=== PATIENT | female | born 2000 | race Hispanic/Latino ===

== ENCOUNTER 2022-06-18 19:51 | Emergency (ER) | payer MEDICAID, SELFPAY ==
[2022-06-18 20:27] LABS: Bilirubin Neg (Negative); Blood, Urine Negative (Negative); Clarity Clear (Clear); Glucose, Urine (Dipstick) Normal (Negative); Ketone, Urine Negative (Negative); Leukocyte 25 (Negative); Nitrite Negative (Negative); Protein, Urine (Dipstick) 15 mg/dl (Neg-Trace); Specific Gravity, Urine 1.025 (1.005-1.030); Urobilinogen Normal mg/dL (Less than 2)
[2022-06-18 20:30] LABS: Pregnancy Test - Urine (BHCG) POSITIVE (Negative); Pregu Control Background? CLEAR/WHITE (CLR/WHITE); Pregu Control Bar Appear? YES (CONTROL BAR); Specific Gravity 1.025 (1.002-1.036)
[2022-06-18 20:57] LABS: Bacteria/HPF 1+ HPF (None Seen); Mucous/LPF 2+ LPF (<2+); RBC/HPF 0-3 HPF (0-3); Squamous Epithelial 0-3 HPF (0-3); WBC/HPF 0-3 HPF (0-3)
[2022-06-18 21:03] LABS: #Basophils 0.1 10x3/uL (0.0-0.2); #Eosinphils 0.1 10x3/uL (0.0-0.5); #Monocytes 0.6 10x3/uL (0.0-1.1); #Neutrophils 4.7 10x3/uL (1.5-8.4); %Basophils 0.7 % (0.0-2.0); %Eosinophils 1.1 % (0.0-6.0); %Lymphocytes 26.8 % (18.0-47.0); %Monocytes 7.6 % (0.0-10.0); %Neutrophils 63.5 % (40.0-75.0); Hemoglobin 11.2 g/dL (12.0-15.5); Mean Corpuscular HGB CONC 32.4 g/dL (32.0-36.0); Mean Corpuscular Hemoglobin 27.1 pg (27.0-33.0); Mean Corpuscular Volume 83.8 fl (81.6-98.3); Mean Platelet Volume 10.3 fl (7.4-10.4); Platelet Count 270 10x3/uL (150-450); RBC Distribution Width 13.7 % (11.5-14.5); Red Blood Cell (RBC) Count 4.13 10x6/uL (3.90-5.03); White Blood Cell (WBC) Count 7.4 10x3/uL (3.5-10.5)
== END 2022-06-18 23:18 | disposition home or self-care (01) ==
LOC: CSHERS 19:51
DX: O99.891 Other specified diseases and conditions complicating pregnancy (principal); R10.2 Pelvic and perineal pain; Z3A.01 Less than 8 weeks gestation of pregnancy
CPT/HCPCS: 36415; 76856; 81003; 81015; 81025; 84702; 85025; 86900; 86901

== ENCOUNTER 2022-06-23 13:07 | Emergency (ER) | payer MEDICAID, SELFPAY ==
[2022-06-23] MEDS ORDERED: Acetaminophen 500 MG TAB ONE (18:16)
== END 2022-06-23 19:38 | disposition home or self-care (01) ==
LOC: CSHERS 13:07
DX: O99.891 Other specified diseases and conditions complicating pregnancy (principal); Z3A.01 Less than 8 weeks gestation of pregnancy
CPT/HCPCS: 76856; 84702; 93976

== ENCOUNTER 2023-01-10 21:20 | Day surgery (SDC) | payer MEDICAID ==
[2023-01-10] MEDS ORDERED: hydrALAZINE 20 MG/ML VIAL SLOW IVP PRN (22:34)
[2023-01-10 23:16] VITALS: BMI 21.9
[2023-01-10 23:36] LABS: Bilirubin Neg (Negative); Blood, Urine Negative (Negative); Clarity Clear (Clear); Glucose, Urine (Dipstick) Normal (Negative); Ketone, Urine Negative (Negative); Leukocyte Negative (Negative); Nitrite Negative (Negative); Protein, Urine (Dipstick) Negative (Neg-Trace); Urobilinogen Normal mg/dL (Less than 2)
[2023-01-10 23:50] LABS: Bacteria/HPF Rare-Few HPF (None Seen); CAUTI Indications for Culture Pregnancy; Mucous/LPF Rare LPF (<2+); RBC/HPF None Seen HPF (0-3); Squamous Epithelial 0-3 HPF (0-3); WBC/HPF 0-3 HPF (0-3)
[2023-01-10 23:52] LABS: Urine Culture Reflex Yes Yes
== END 2023-01-10 23:59 | disposition home or self-care (01) ==
LOC: CSHLD/OP 21:20
PROVIDERS: ATTEND Family Medicine
DX: O23.593 Infection of other part of genital tract in pregnancy, third trimester (principal); N89.8 Other specified noninflammatory disorders of vagina; O99.891 Other specified diseases and conditions complicating pregnancy; R10.30 Lower abdominal pain, unspecified; O99.343 Other mental disorders complicating pregnancy, third trimester; T14.91XA Suicide attempt, initial encounter; Z3A.31 31 weeks gestation of pregnancy; Z79.899 Other long term (current) drug therapy
CPT/HCPCS: 76815; 81001; 87086

== ENCOUNTER 2023-01-31 02:18 | Day surgery (SDC) | payer OTHER, MEDICAID ==
[2023-01-31 02:57] VITALS: BMI 22.3
[2023-01-31] MEDS ORDERED: Promethazine HCl 25 MG/ML VIAL IM PRN (03:15)
[2023-01-31] MEDS ORDERED: Acetaminophen 500 MG TAB PO SCH (03:15)
[2023-01-31 03:30] LABS: Bilirubin Neg (Negative); Blood, Urine Negative (Negative); Clarity Clear (Clear); Glucose, Urine (Dipstick) Normal (Negative); Ketone, Urine Negative (Negative); Leukocyte 100 (Negative); Nitrite Negative (Negative); Protein, Urine (Dipstick) 15 mg/dl (Neg-Trace); Urobilinogen Normal mg/dL (Less than 2); pH, Urine 6.5 (5.0-9.0)
[2023-01-31 03:41] LABS: CAUTI Indications for Culture Pregnancy; RBC/HPF 0-3 HPF (0-3)
[2023-01-31 03:42] LABS: Bacteria/HPF None Seen HPF (None Seen)
[2023-01-31 03:44] LABS: Urine Culture Reflex Yes Yes
[2023-01-31] MEDS ORDERED: Metoclopramide HCl 10 MG TAB PO SCH (04:00)
[2023-01-31] MEDS ORDERED: Cephalexin 500 MG CAP PO SCH (09:00)
== END 2023-01-31 04:45 | disposition home or self-care (01) ==
LOC: CSHLD/OP 02:18
PROVIDERS: ATTEND Family Medicine
DX: O99.891 Other specified diseases and conditions complicating pregnancy (principal); O21.2 Late vomiting of pregnancy; R35.0 Frequency of micturition; R19.7 Diarrhea, unspecified; F41.9 Anxiety disorder, unspecified; F43.10 Post-traumatic stress disorder, unspecified; Z79.899 Other long term (current) drug therapy; Z3A.34 34 weeks gestation of pregnancy
CPT/HCPCS: 81001; 87086

== ENCOUNTER 2023-02-11 22:49 | Inpatient (IN) | payer MEDICAID, OTHER ==
[2023-02-11 23:59] LABS: Fetal Membranes Rupture No Membranes Rupture (No Rupture)
[2023-02-12 01:26] VITALS: BMI 22.4
[2023-02-12] MEDS ORDERED: fentaNYL 50 mcg/mL 1 mL Vial SLOW IVP PRN (01:33)
[2023-02-12] MEDS ORDERED: hydrALAZINE 20 MG/ML VIAL SLOW IVP PRN ×2 (01:45→10:08)
[2023-02-12] MEDS ORDERED: Ibuprofen 800 MG TAB PO PRN (01:45)
[2023-02-12] MEDS ORDERED: Diphenoxylate HCl/Atropine Tablet PO PRN ×2 (01:45)
[2023-02-12] MEDS ORDERED: Ondansetron PF 4 MG/2 ML Vial IVP PRN ×2 (01:45→10:08)
[2023-02-12] MEDS ORDERED: Carboprost 250 MCG/ML AMP IM PRN (01:45)
[2023-02-12] MEDS ORDERED: Oxytocin 30 units/NS 500 ML 500 ML IVPB SCH (01:45)
[2023-02-12] MEDS ORDERED: Acetaminophen 500 MG TAB PO PRN ×2 (01:45→22:28)
[2023-02-12] MEDS ORDERED: Methylergonovine 0.2 MG/ML VIAL IM PRN (01:45)
[2023-02-12] MEDS ORDERED: Promethazine HCl 25 MG/ML VIAL IM PRN ×3 (01:45→10:08)
[2023-02-12] MEDS ORDERED: Misoprostol 200 MCG TAB RC PRN (01:45)
[2023-02-12] MEDS ORDERED: Lidocaine 1% (PF) 30 ML VIAL SC PRN (01:45)
[2023-02-12] MEDS ORDERED: Oxytocin 30 units/NS 500 ML 500 ML IV SCH (01:45)
[2023-02-12] MEDS ORDERED: HYDROcodone/Acetaminophen 5/325 mg Tablet PO PRN ×2 (01:45)
[2023-02-12] MEDS ORDERED: Lactated Ringer's 1,000 ML IV SCH ×2 (01:45)
[2023-02-12 01:53] LABS: Hematocrit 31.6 % (34.9-44.5); Hemoglobin 9.9 g/dL (12.0-15.5); Mean Corpuscular HGB CONC 31.3 g/dL (32.0-36.0); Mean Corpuscular Hemoglobin 25.7 pg (27.0-33.0); Mean Corpuscular Volume 82.1 fl (81.6-98.3); Mean Platelet Volume 10.3 fl (7.4-10.4); Platelet Count 344 10x3/uL (150-450); RBC Distribution Width 14.3 % (11.5-14.5); Red Blood Cell (RBC) Count 3.85 10x6/uL (3.90-5.03); White Blood Cell (WBC) Count 10.3 10x3/uL (3.5-10.5)
[2023-02-12] MEDS ORDERED: fentaNYL/Ropivacaine Epidural 100 ML ONE (01:54)
[2023-02-12 02:30] LABS: Hep B Surf Ag - L&D Non-Reactive S/CO (NonReactive); Syphilis Antibody Nonreactive (Nonreactive); Syphilis Antibody Index 0.06 S/CO (<1.00 Non-Reactive)
[2023-02-12] MEDS ORDERED: ePHEDrine Sulfate 50 MG/10 ML VIAL SLOW IVP PRN (02:35)
[2023-02-12] MEDS ORDERED: Naloxone HCl 0.4 mg/ml Vial IVP PRN ×2 (02:35)
[2023-02-12] MEDS ORDERED: Acetaminophen 325 MG TAB PO PRN (02:35)
[2023-02-12] MEDS ORDERED: Lactated Ringer's 500 ML IV PRN (02:35)
[2023-02-12] MEDS ORDERED: diphenhydrAMINE 50 MG/ML VIAL IVP PRN (02:35)
[2023-02-12] MEDS ORDERED: Moisturizing Cream (Eucerin) 113 GM JAR TOP PRN (02:35)
[2023-02-12] MEDS ORDERED: fentaNYL 2 mcg/Ropivacaine 0.2% Epidural 100 ML CADD EPIDURAL SCH (02:45)
[2023-02-12] MEDS ORDERED: Communication Order-Pharmacy FS SCH (02:45)
[2023-02-12] MEDS: Ondansetron PF 4 MG/2 ML Vial IVP PRN ×2 (03:03→21:54)
[2023-02-12] MEDS ORDERED: CEFAZOLIN 2 GM VIAL ONE (07:39)
[2023-02-12] MEDS ORDERED: Boostrix 0.5 ML (Tdap) VIAL (>/=7 yrs of age) IM ONE (10:08)
[2023-02-12] MEDS ORDERED: Milk Of Magnesia 30 ML UDCUP PO PRN (10:08)
[2023-02-12] MEDS ORDERED: Bisacodyl 10 MG SUPP PR PRN (10:08)
[2023-02-12] MEDS ORDERED: diphenhydrAMINE 25 MG CAP PO PRN (10:08)
[2023-02-12] MEDS ORDERED: Lanolin Ointment 7 GM TUBE TOP PRN (10:08)
[2023-02-12] MEDS ORDERED: Docusate 100 MG CAP PO SCH (10:15)
[2023-02-12] MEDS ORDERED: Prenatal Vitamin 1 TAB PO SCH (10:15)
[2023-02-12] MEDS: Ibuprofen 800 MG TAB PO SCH ×2 (13:22→21:54)
[2023-02-12] MEDS: HYDROcodone/Acetaminophen 5/325 mg Tablet PO PRN ×2 (16:03→20:01)
[2023-02-12] MEDS: Ferrous Sulfate 325 MG TAB PO SCH (16:03)
[2023-02-12] MEDS: Docusate 100 MG CAP PO SCH (20:01)
[2023-02-12] MEDS ORDERED: HYDROmorphone 0.5 MG/0.5 ML SYRINGE SLOW IVP SCH (21:45)
[2023-02-13] MEDS: Ibuprofen 800 MG TAB PO SCH ×2 (05:00→14:08)
[2023-02-13 07:53] VITALS: BP 115/56; TEMP 98.3
[2023-02-13] MEDS: Ferrous Sulfate 325 MG TAB PO SCH (08:15)
[2023-02-13] MEDS: Docusate 100 MG CAP PO SCH (08:18)
[2023-02-13] MEDS ORDERED: Prenatal Vitamin 1 TAB PO SCH (09:00)
[2023-02-13] MEDS: HYDROcodone/Acetaminophen 5/325 mg Tablet PO PRN (09:27)
== END 2023-02-13 16:18 | disposition home or self-care (01) | DRG 807 ==
LOC: CSHLD/OP 22:49 → CSHLD 02-12 00:57 → CSHPP 02-12 11:15
PROVIDERS: ADMIT Family Medicine; ATTEND Family Medicine
PROC: 10E0XZZ Delivery of Products of Conception, External Approach (ICD-10-PCS; principal; 2023-02-12)
PROC: 3E0334Z Introduction of Serum, Toxoid and Vaccine into Peripheral Vein, Percutaneous Approach (ICD-10-PCS; 2023-02-13)
DX: O99.344 Other mental disorders complicating childbirth (principal); Z37.0 Single live birth; Z3A.38 38 weeks gestation of pregnancy; F31.9 Bipolar disorder, unspecified; O26.893 Other specified pregnancy related conditions, third trimester; Z67.91 Unspecified blood type, Rh negative
CPT/HCPCS: 36415; 51702; 84112; 85027; 85461; 86780; 86850; 86870; 86900; 86901; 87340; 90384; 96372; 99285; J1170; J2405; J2590

== ENCOUNTER 2023-02-15 18:14 | Emergency (ER) | payer OTHER ==
[2023-02-15] MEDS ORDERED: Ketorolac Tromethamine 30 MG/ML VIAL ONE (19:26)
[2023-02-15] MEDS ORDERED: Promethazine HCl 12.5 MG in Sodium Chloride 0.9% 50 ML IVPB SCH (19:45)
[2023-02-15] MEDS ORDERED: [UNRECOGNIZED DRUG - OTHER] SLOW IVP SCH (20:45)
[2023-02-15] MEDS ORDERED: CAFFEINE SLOW IVP SCH (20:45)
== END 2023-02-16 01:25 | disposition home or self-care (01) ==
LOC: CSHERS 18:14
DX: O89.4 Spinal and epidural anesthesia-induced headache during the puerperium (principal)
CPT/HCPCS: 96361; 96365; 96375; J0706; J1885; J2550

== ENCOUNTER 2023-03-22 06:31 | Emergency (ER) | payer OTHER ==
[2023-03-22] MEDS ORDERED: Ondansetron PF 4 MG/2 ML Vial ONE ×2 (06:50→07:29)
[2023-03-22] MEDS ORDERED: Acetaminophen 500 MG TAB ONE (07:25)
[2023-03-22] MEDS ORDERED: Famotidine/PF 20 mg/2ml Vial ONE (07:25)
[2023-03-22 07:27] LABS: #Basophils 0.1 10x3/uL (0.0-0.2); #Monocytes 0.3 10x3/uL (0.0-1.1); #Neutrophils 5.6 10x3/uL (1.5-8.4); %Basophils 0.8 % (0.0-2.0); %Eosinophils 0.4 % (0.0-6.0); %Lymphocytes 19.6 % (18.0-47.0); %Monocytes 4.1 % (0.0-10.0); Hematocrit 36.7 % (34.9-44.5); Hemoglobin 11.6 g/dL (12.0-15.5); Mean Corpuscular HGB CONC 31.6 g/dL (32.0-36.0); Mean Corpuscular Hemoglobin 25.7 pg (27.0-33.0); Mean Corpuscular Volume 81.2 fl (81.6-98.3); Mean Platelet Volume 10.3 fl (7.4-10.4); Platelet Count 324 10x3/uL (150-450); RBC Distribution Width 17.5 % (11.5-14.5); Red Blood Cell (RBC) Count 4.52 10x6/uL (3.90-5.03); White Blood Cell (WBC) Count 7.4 10x3/uL (3.5-10.5)
[2023-03-22 07:39] LABS: Acetaminophen Less than 10 mcg/mL (10.0-30.0); Alcohol Less than 10.0 mg/dL (Less than 10); Salicylate Less than 8.0 mg/dL (15.0-30.0)
[2023-03-22 07:42] LABS: ALT (SGPT) 10 U/L (8-55); AST (SGOT) 13 U/L (5-34); Albumin 4.2 g/dL (3.5-5.0); Alkaline Phosphatase 71 U/L (40-110); Anion Gap 15 mmol/L (10-20); BUN (Urea Nitrogen) 7 mg/dL (7.0-18.7); Bilirubin, Total 0.4 mg/dL (0.2-1.2); Calc. Creatinine Clearance 0 mL/min (70-130); Calcium 8.9 mg/dL (7.8-10.44); Carbon Dioxide 22 mmol/L (22-29); Chloride 109 mmol/L (98-107); Estimated GFR 129; Globulin 2.9 g/dL (2.4-3.5); Glucose 100 mg/dL (70-105); Potassium 3.8 mmol/L (3.5-5.1); Protein, Total 7.1 g/dL (6.0-8.3); Sodium 142 mmol/L (136-145)
[2023-03-22 07:51] LABS: BHCG - Serum Negative (NEGATIVE); Pregs Control Background? CLEAR/WHITE (CLR/WHITE); Pregs Control Bar Appear? YES (CONTROL BAR)
[2023-03-22 09:28] LABS: Amphetamine Not Detected (NotDetected); Barbiturates Screen Not Detected (NotDetected); Benzodiazepine Screen Not Detected (NotDetected); Cocaine Metabolite Screen Not Detected (NotDetected); Methadone Not Detected (NotDetected); Methamphetamine Not Detected (NotDetected); Opiate Screen Not Detected (NotDetected); Oxycodone Screen Not Detected (NotDetected); Phencyclidine (PCP) Not Detected (NotDetected); THC/Cannabinoid Screen Not Detected (NotDetected); Tricyclic Screen Not Detected (NotDetected)
[2023-03-22 10:55] LABS: Pregnancy Test - Urine (BHCG) Negative (Negative); Pregu Control Background? CLEAR/WHITE (CLR/WHITE); Pregu Control Bar Appear? YES (CONTROL BAR); Specific Gravity 1.005 (1.002-1.036)
[2023-03-22] MEDS ORDERED: diphenhydrAMINE 25 MG CAP ONE (20:22)
== END 2023-03-22 21:04 ==
LOC: CSHERS 06:31 → EEVIPCON 06:31 → CSHERS 21:04
DX: T43.222A Poisoning by selective serotonin reuptake inhibitors, intentional self-harm, initial encounter (principal); R11.2 Nausea with vomiting, unspecified
CPT/HCPCS: 80053; 80306; 80307; 81025; 84703; 85025; 93005; 96361; 96374; 96375; J2405; S0028

== ENCOUNTER 2023-05-03 20:45 | Emergency (ER) | payer OTHER ==
[2023-05-03 21:07] LABS: Bilirubin Neg (Negative); Blood, Urine Negative (Negative); Clarity Slightly Cloudy (Clear); Glucose, Urine (Dipstick) Normal (Negative); Ketone, Urine Negative (Negative); Leukocyte 500 (Negative); Nitrite Negative (Negative); Protein, Urine (Dipstick) 15 mg/dl (Neg-Trace); Specific Gravity, Urine 1.015 (1.005-1.030); pH, Urine 6.5 (5.0-9.0)
[2023-05-03 21:09] LABS: Pregnancy Test - Urine (BHCG) POSITIVE (Negative); Pregu Control Background? CLEAR/WHITE (CLR/WHITE); Pregu Control Bar Appear? YES (CONTROL BAR); Specific Gravity 1.015 (1.002-1.036)
[2023-05-03 21:30] LABS: Bacteria/HPF 1+ HPF (None Seen); CAUTI Indications for Culture Pregnancy; RBC/HPF 0-3 HPF (0-3)
[2023-05-03 21:31] LABS: Mucous/LPF 1+ LPF (<2+); Urine Culture Reflex Yes Yes
[2023-05-03 22:14] LABS: #Basophils 0.1 10x3/uL (0.0-0.2); #Eosinphils 0.1 10x3/uL (0.0-0.5); #Monocytes 0.9 10x3/uL (0.0-1.1); #Neutrophils 5.3 10x3/uL (1.5-8.4); %Basophils 0.7 % (0.0-2.0); %Eosinophils 1.5 % (0.0-6.0); %Lymphocytes 29.3 % (18.0-47.0); %Monocytes 10.3 % (0.0-10.0); %Neutrophils 57.9 % (40.0-75.0); Hematocrit 30.4 % (34.9-44.5); Mean Corpuscular HGB CONC 32.9 g/dL (32.0-36.0); Mean Corpuscular Hemoglobin 27.1 pg (27.0-33.0); Mean Corpuscular Volume 82.4 fl (81.6-98.3); Mean Platelet Volume 10.5 fl (7.4-10.4); Platelet Count 331 10x3/uL (150-450); RBC Distribution Width 16.7 % (11.5-14.5); Red Blood Cell (RBC) Count 3.69 10x6/uL (3.90-5.03); White Blood Cell (WBC) Count 9.1 10x3/uL (3.5-10.5)
[2023-05-03 22:26] LABS: Anion Gap 12 mmol/L (10-20); BUN (Urea Nitrogen) 14 mg/dL (7.0-18.7); Calc. Creatinine Clearance 0 mL/min (70-130); Calcium 8.5 mg/dL (7.8-10.44); Carbon Dioxide 21 mmol/L (22-29); Chloride 109 mmol/L (98-107); Estimated GFR 129; Glucose 86 mg/dL (70-105); Potassium 3.7 mmol/L (3.5-5.1); Sodium 138 mmol/L (136-145)
[2023-05-05 16:07] LABS: Chlamydia by PCR, EndoCx Swab *Indeterminate (NotDetected); GC by PCR, EndoCx Swab *Indeterminate (NotDetected)
== END 2023-05-04 00:30 | disposition home or self-care (01) ==
LOC: CSHERS 20:45
DX: O23.591 Infection of other part of genital tract in pregnancy, first trimester (principal); O30.041 Twin pregnancy, dichorionic/diamniotic, first trimester; Z3A.01 Less than 8 weeks gestation of pregnancy
CPT/HCPCS: 76817; 80048; 81001; 81025; 84702; 85025; 87086; 87480; 87491; 87510; 87591; 87660

== ENCOUNTER 2023-05-17 19:52 | Emergency (ER) | payer OTHER ==
[2023-05-17 21:00] LABS: #Basophils 0.1 10x3/uL (0.0-0.2); #Eosinphils 0.1 10x3/uL (0.0-0.5); #Monocytes 0.5 10x3/uL (0.0-1.1); #Neutrophils 6.2 10x3/uL (1.5-8.4); %Basophils 0.6 % (0.0-2.0); %Lymphocytes 26.2 % (18.0-47.0); %Monocytes 5.3 % (0.0-10.0); %Neutrophils 66.6 % (40.0-75.0); Hematocrit 34.3 % (34.9-44.5); Hemoglobin 11.1 g/dL (12.0-15.5); Mean Corpuscular HGB CONC 32.4 g/dL (32.0-36.0); Mean Corpuscular Hemoglobin 26.1 pg (27.0-33.0); Mean Corpuscular Volume 80.5 fl (81.6-98.3); Mean Platelet Volume 10.1 fl (7.4-10.4); Platelet Count 348 10x3/uL (150-450); RBC Distribution Width 15.6 % (11.5-14.5); Red Blood Cell (RBC) Count 4.26 10x6/uL (3.90-5.03); White Blood Cell (WBC) Count 9.3 10x3/uL (3.5-10.5)
[2023-05-17] MEDS ORDERED: Promethazine HCl 12.5 MG in Sodium Chloride 0.9% 50 ML IVPB ONE (21:00)
[2023-05-17 21:04] LABS: ALT (SGPT) 14 U/L (8-55); AST (SGOT) 14 U/L (5-34); Albumin 4.1 g/dL (3.5-5.0); Alkaline Phosphatase 55 U/L (40-110); Anion Gap 13 mmol/L (10-20); BUN (Urea Nitrogen) 12 mg/dL (7.0-18.7); Bilirubin, Total 0.3 mg/dL (0.2-1.2); Calc. Creatinine Clearance 0 mL/min (70-130); Calcium 8.7 mg/dL (7.8-10.44); Carbon Dioxide 22 mmol/L (22-29); Chloride 106 mmol/L (98-107); Estimated GFR 126; Globulin 3.1 g/dL (2.4-3.5); Glucose 86 mg/dL (70-105); Lipase 32 U/L (8-78); Potassium 3.7 mmol/L (3.5-5.1); Protein, Total 7.2 g/dL (6.0-8.3); Sodium 137 mmol/L (136-145)
[2023-05-17 21:40] LABS: Bilirubin Neg (Negative); Blood, Urine Negative (Negative); Clarity Clear (Clear); Glucose, Urine (Dipstick) Normal (Negative); Ketone, Urine Negative (Negative); Leukocyte 100 (Negative); Nitrite Negative (Negative); Protein, Urine (Dipstick) Negative (Neg-Trace); Urobilinogen Normal mg/dL (Less than 2)
[2023-05-17 22:07] LABS: Bacteria/HPF 1+ HPF (None Seen); CAUTI Indications for Culture Pelvic or flank pain; Mucous/LPF 2+ LPF (<2+); RBC/HPF 0-3 HPF (0-3); Squamous Epithelial 0-3 HPF (0-3)
[2023-05-17 22:09] LABS: Urine Culture Reflex Yes Yes
== END 2023-05-17 23:15 | disposition home or self-care (01) ==
LOC: CSHERS 19:52
DX: O21.9 Vomiting of pregnancy, unspecified (principal); Z87.891 Personal history of nicotine dependence; Z3A.00 Weeks of gestation of pregnancy not specified
CPT/HCPCS: 80053; 81001; 83605; 83690; 84702; 85025; 87086; 96361; 96374

== ENCOUNTER 2023-08-12 21:37 | Emergency (ER) | payer OTHER ==
[2023-08-12] MEDS ORDERED: Acetaminophen 500 MG TAB ONE (22:02)
[2023-08-12 22:21] LABS: #Basophils 0.05 10x3/uL (0.0-0.2); #Eosinphils 0.37 10x3/uL (0.0-0.5); #Monocytes 0.68 10x3/uL (0.0-1.1); #Neutrophils 4.07 10x3/uL (1.5-8.4); %Basophils 0.7 % (0.0-2.0); %Eosinophils 5.4 % (0.0-6.0); %Lymphocytes 24.5 % (18.0-47.0); %Monocytes 9.9 % (0.0-10.0); %Neutrophils 59.2 % (40.0-75.0); Hematocrit 29.9 % (34.9-44.5); Hemoglobin 9.6 g/dL (12.0-15.5); Mean Corpuscular HGB CONC 32.1 g/dL (32.0-36.0); Mean Corpuscular Hemoglobin 26.2 pg (27.0-33.0); Mean Corpuscular Volume 81.7 fL (81.6-98.3); Mean Platelet Volume 10.3 fL (7.4-10.4); Platelet Count 302 10x3/uL (150-450); RBC Distribution Width 16.4 % (11.5-14.5); Red Blood Cell (RBC) Count 3.66 10x6/uL (3.90-5.03); White Blood Cell (WBC) Count 6.9 10x3/uL (3.5-10.5)
[2023-08-12 22:34] LABS: ALT (SGPT) 9 U/L (8-55); AST (SGOT) 14 U/L (5-34); Albumin 2.9 g/dL (3.5-5.0); Alkaline Phosphatase 73 U/L (40-110); Anion Gap 13 mmol/L (10-20); BUN (Urea Nitrogen) 9 mg/dL (7.0-18.7); Bilirubin, Total Less than 0.2 mg/dL (0.2-1.2); Calc. Creatinine Clearance 0 mL/min (70-130); Calcium 8.3 mg/dL (7.8-10.44); Carbon Dioxide 21 mmol/L (22-29); Chloride 105 mmol/L (98-107); Estimated GFR 133; Globulin 3.6 g/dL (2.4-3.5); Glucose 79 mg/dL (70-105); Lipase 37 U/L (8-78); Magnesium 1.9 mg/dL (1.6-2.6); Potassium 3.3 mmol/L (3.5-5.1); Protein, Total 6.5 g/dL (6.0-8.3); Sodium 136 mmol/L (136-145)
[2023-08-12] MEDS ORDERED: Potassium Bicarbonate/Cit Ac 20 MEQ TAB ONE (23:22)
[2023-08-12 23:55] LABS: Bilirubin Neg (Negative); Blood, Urine Negative (Negative); Clarity Clear (Clear); Glucose, Urine (Dipstick) Normal (Negative); Ketone, Urine Negative (Negative); Leukocyte 25 (Negative); Nitrite Negative (Negative); Protein, Urine (Dipstick) 15 mg/dl (Neg-Trace); Specific Gravity, Urine 1.015 (1.005-1.030); Urobilinogen Normal mg/dL (Less than 2); pH, Urine 6.5 (5.0-9.0)
[2023-08-12 23:59] LABS: Bacteria/HPF 2+ HPF (None Seen); CAUTI Indications for Culture Pelvic or flank pain; RBC/HPF None Seen HPF (0-3)
[2023-08-13 00:01] LABS: Urine Culture Reflex No No
[2023-08-13] MEDS ORDERED: Cephalexin 250 MG CAP ONE (00:26)
== END 2023-08-13 00:42 | disposition home or self-care (01) ==
LOC: CSHERS 21:37
DX: O23.42 Unspecified infection of urinary tract in pregnancy, second trimester (principal); N39.0 Urinary tract infection, site not specified; O99.282 Endocrine, nutritional and metabolic diseases complicating pregnancy, second trimester; E87.6 Hypokalemia; R11.2 Nausea with vomiting, unspecified; Z3A.17 17 weeks gestation of pregnancy
CPT/HCPCS: 76770; 76856; 80053; 81001; 83690; 83735; 85025; 87086

== ENCOUNTER 2023-09-18 18:15 | Day surgery (SDC) | payer OTHER ==
[2023-09-18 18:48] VITALS: BMI 23.6
[2023-09-18] MEDS ORDERED: hydrALAZINE 20 MG/ML VIAL SLOW IVP PRN (19:02)
[2023-09-18] MEDS: Lactated Ringer's 1,000 ML IV SCH (19:35)
[2023-09-18 19:55] LABS: Bilirubin Neg (Negative); Blood, Urine Negative (Negative); Glucose, Urine (Dipstick) Normal (Negative); Ketone, Urine 5 mg/dL (Negative); Leukocyte 100 (Negative); Nitrite Negative (Negative); Protein, Urine (Dipstick) 30 mg/dl (Neg-Trace); Specific Gravity, Urine 1.015 (1.005-1.030)
[2023-09-18 19:57] LABS: Clarity Clear (Clear)
[2023-09-18 20:03] LABS: Amphetamine Not Detected (NotDetected); Barbiturates Screen Not Detected (NotDetected); Benzodiazepine Screen Not Detected (NotDetected); Cocaine Metabolite Screen Not Detected (NotDetected); Methadone Not Detected (NotDetected); Methamphetamine Not Detected (NotDetected); Opiate Screen Not Detected (NotDetected); Oxycodone Screen Not Detected (NotDetected); Phencyclidine (PCP) Not Detected (NotDetected); THC/Cannabinoid Screen Not Detected (NotDetected); Tricyclic Screen Not Detected (NotDetected)
[2023-09-18] MEDS: Acetaminophen 500 MG TAB PO PRN (20:13)
[2023-09-18] MEDS: Fluconazole 100 MG TAB PO SCH (20:14)
[2023-09-18] MEDS: diphenhydrAMINE 50 MG/ML VIAL IVP PRN (20:15)
[2023-09-18 20:17] LABS: Bacteria/HPF 4+ HPF (None Seen); CAUTI Indications for Culture Pregnancy; Mucous/LPF 3+ LPF (<2+); RBC/HPF None Seen HPF (0-3); WBC/HPF 0-3 HPF (0-3)
[2023-09-18 20:18] LABS: Urine Culture Reflex Yes Yes
[2023-09-18] MEDS: Methocarbamol 500 MG TAB PO PRN (20:20)
[2023-09-19 23:30] LABS: GC by PCR, Vaginal Swab Not Detected (NotDetected)
== END 2023-09-18 20:48 | disposition home or self-care (01) ==
LOC: CSHLD/OP 18:15
PROVIDERS: ATTEND Family Medicine
DX: O99.891 Other specified diseases and conditions complicating pregnancy (principal); M54.50 Low back pain, unspecified; R10.2 Pelvic and perineal pain; O99.012 Anemia complicating pregnancy, second trimester; D50.9 Iron deficiency anemia, unspecified; O99.332 Smoking (tobacco) complicating pregnancy, second trimester; F17.200 Nicotine dependence, unspecified, uncomplicated; O99.312 Alcohol use complicating pregnancy, second trimester; O99.612 Diseases of the digestive system complicating pregnancy, second trimester; K52.9 Noninfective gastroenteritis and colitis, unspecified; O98.812 Other maternal infectious and parasitic diseases complicating pregnancy, second trimester; B95.1 Streptococcus, group B, as the cause of diseases classified elsewhere; O30.042 Twin pregnancy, dichorionic/diamniotic, second trimester; Z3A.24 24 weeks gestation of pregnancy; Z79.899 Other long term (current) drug therapy
CPT/HCPCS: 80306; 81001; 87086; 87480; 87510; 87591; 87660; J1200

== ENCOUNTER 2023-10-01 22:40 | Emergency (ER) | payer OTHER ==
[2023-10-01 23:28] LABS: #Basophils 0.03 10x3/uL (0.0-0.2); #Eosinphils 0.21 10x3/uL (0.0-0.5); #Monocytes 0.75 10x3/uL (0.0-1.1); #Neutrophils 5.57 10x3/uL (1.5-8.4); %Basophils 0.3 % (0.0-2.0); %Eosinophils 2.3 % (0.0-6.0); %Lymphocytes 26.5 % (18.0-47.0); %Monocytes 8.2 % (0.0-10.0); %Neutrophils 61.3 % (40.0-75.0); Hematocrit 25.4 % (34.9-44.5); Hemoglobin 8.3 g/dL (12.0-15.5); Mean Corpuscular HGB CONC 32.7 g/dL (32.0-36.0); Mean Corpuscular Hemoglobin 24.9 pg (27.0-33.0); Mean Corpuscular Volume 76.3 fL (81.6-98.3); Mean Platelet Volume 10.6 fL (7.4-10.4); Platelet Count 326 10x3/uL (150-450); RBC Distribution Width 16.4 % (11.5-14.5); Red Blood Cell (RBC) Count 3.33 10x6/uL (3.90-5.03); White Blood Cell (WBC) Count 9.1 10x3/uL (3.5-10.5)
[2023-10-01 23:35] LABS: Bilirubin Neg (Negative); Blood, Urine Negative (Negative); Glucose, Urine (Dipstick) 50 mg/dL (Negative); Ketone, Urine Negative (Negative); Leukocyte 25 (Negative); Nitrite Negative (Negative); Protein, Urine (Dipstick) 15 mg/dl (Neg-Trace); Urobilinogen Normal mg/dL (Less than 2)
[2023-10-01 23:40] LABS: ALT (SGPT) 9 U/L (8-55); AST (SGOT) 14 U/L (5-34); Albumin 2.7 g/dL (3.5-5.0); Alkaline Phosphatase 89 U/L (40-110); Anion Gap 13 mmol/L (10-20); BUN (Urea Nitrogen) 10 mg/dL (7.0-18.7); Bilirubin, Total 0.2 mg/dL (0.2-1.2); Calc. Creatinine Clearance 0 mL/min (70-130); Calcium 8.2 mg/dL (7.8-10.44); Carbon Dioxide 19 mmol/L (22-29); Chloride 110 mmol/L (98-107); Estimated GFR 136; Globulin 3.3 g/dL (2.4-3.5); Glucose 112 mg/dL (70-105); Potassium 3.6 mmol/L (3.5-5.1); Sodium 138 mmol/L (136-145)
[2023-10-01 23:41] LABS: Clarity Clear (Clear)
[2023-10-01 23:46] LABS: Bacteria/HPF 3+ HPF (None Seen); CAUTI Indications for Culture Pregnancy; RBC/HPF 0-3 HPF (0-3)
[2023-10-01 23:48] LABS: Urine Culture Reflex Yes Yes
== END 2023-10-02 00:37 ==
LOC: CSHERS 22:40
DX: O99.02 Anemia complicating childbirth (principal); Z3A.28 28 weeks gestation of pregnancy; Z37.2 Twins, both liveborn
CPT/HCPCS: 80053; 81001; 85025; 86850; 86900; 86901; 87086; 99284

== ENCOUNTER 2023-10-06 16:32 | Day surgery (SDC) | payer OTHER ==
[2023-10-06] MEDS ORDERED: Ondansetron ODT 4 MG TAB PO SCH (17:45)
[2023-10-06 18:59] LABS: #Basophils 0.02 10x3/uL (0.0-0.2); #Eosinphils 0.05 10x3/uL (0.0-0.5); #Monocytes 0.89 10x3/uL (0.0-1.1); #Neutrophils 10.74 10x3/uL (1.5-8.4); %Basophils 0.1 % (0.0-2.0); %Eosinophils 0.4 % (0.0-6.0); %Lymphocytes 11.8 % (18.0-47.0); %Monocytes 6.6 % (0.0-10.0); %Neutrophils 80.3 % (40.0-75.0); Hematocrit 26.1 % (34.9-44.5); Hemoglobin 8.2 g/dL (12.0-15.5); Mean Corpuscular HGB CONC 31.4 g/dL (32.0-36.0); Mean Corpuscular Hemoglobin 23.8 pg (27.0-33.0); Mean Corpuscular Volume 75.9 fL (81.6-98.3); Mean Platelet Volume 10.1 fL (7.4-10.4); Platelet Count 331 10x3/uL (150-450); RBC Distribution Width 17.3 % (11.5-14.5); Red Blood Cell (RBC) Count 3.44 10x6/uL (3.90-5.03); White Blood Cell (WBC) Count 13.4 10x3/uL (3.5-10.5)
[2023-10-06 19:14] LABS: ALT (SGPT) 19 U/L (8-55); AST (SGOT) 18 U/L (5-34); Albumin 2.8 g/dL (3.5-5.0); Alkaline Phosphatase 104 U/L (40-110); Anion Gap 12 mmol/L (10-20); BUN (Urea Nitrogen) 9 mg/dL (7.0-18.7); Bilirubin, Total 0.3 mg/dL (0.2-1.2); Calc. Creatinine Clearance 0 mL/min (70-130); Calcium 8.7 mg/dL (7.8-10.44); Carbon Dioxide 21 mmol/L (22-29); Chloride 106 mmol/L (98-107); Estimated GFR 131; Globulin 3.4 g/dL (2.4-3.5); Glucose 116 mg/dL (70-105); Potassium 3.7 mmol/L (3.5-5.1); Protein, Total 6.2 g/dL (6.0-8.3); Sodium 135 mmol/L (136-145)
[2023-10-06 19:38] LABS: FFN Internal QC Analyzer PASS (PASS); FFN Internal QC Cassette PASS (PASS); Fetal Fibronectin Negative (Negative)
[2023-10-06 19:55] LABS: Bilirubin Neg (Negative); Blood, Urine Negative (Negative); Glucose, Urine (Dipstick) Normal (Negative); Ketone, Urine 5 mg/dL (Negative); Leukocyte Negative (Negative); Nitrite Negative (Negative); Protein, Urine (Dipstick) 30 mg/dl (Neg-Trace); Specific Gravity, Urine 1.015 (1.005-1.030); Urobilinogen Normal mg/dL (Less than 2)
[2023-10-06 19:57] LABS: Clarity Hazy (Clear)
[2023-10-06 20:02] LABS: CAUTI Indications for Culture Pregnancy; RBC/HPF 0-3 HPF (0-3)
[2023-10-06 20:03] LABS: Bacteria/HPF 2+ HPF (None Seen); Mucous/LPF 2+ LPF (<2+)
[2023-10-06 20:05] LABS: Urine Culture Reflex Yes Yes
[2023-10-07 12:22] LABS: Chlamydia by PCR, Vaginal Swab Not Detected (NotDetected); GC by PCR, Vaginal Swab Not Detected (NotDetected); Tric.vaginalis PCR,Vaginal Sw Not Detected (NotDetected)
== END 2023-10-06 22:45 ==
LOC: CSHLD/OP 16:32 → EEVIPCON 16:32 → CSHLD/OP 22:45
PROVIDERS: ATTEND Family Medicine
DX: O99.891 Other specified diseases and conditions complicating pregnancy (principal); R07.89 Other chest pain; M54.50 Low back pain, unspecified; O30.042 Twin pregnancy, dichorionic/diamniotic, second trimester; O99.342 Other mental disorders complicating pregnancy, second trimester; F31.9 Bipolar disorder, unspecified; F41.1 Generalized anxiety disorder; F43.10 Post-traumatic stress disorder, unspecified; T14.91XA Suicide attempt, initial encounter; O99.012 Anemia complicating pregnancy, second trimester; D50.9 Iron deficiency anemia, unspecified; O23.42 Unspecified infection of urinary tract in pregnancy, second trimester; Z3A.27 27 weeks gestation of pregnancy; Z79.899 Other long term (current) drug therapy; Z86.19 Personal history of other infectious and parasitic diseases
CPT/HCPCS: 36415; 76817; 76819; 80053; 81001; 82731; 85025; 87086; 87480; 87491; 87510; 87591; 87660; 87661

== ENCOUNTER 2023-10-25 15:38 | Emergency (ER) | payer OTHER ==
[2023-10-25] MEDS ORDERED: Ondansetron PF 4 MG/2 ML Vial ONE (16:05)
[2023-10-25 16:34] LABS: ALT (SGPT) Less than 7 U/L (8-55); AST (SGOT) 11 U/L (5-34); Alkaline Phosphatase 146 U/L (40-110); Anion Gap 13 mmol/L (10-20); BUN (Urea Nitrogen) 9 mg/dL (7.0-18.7); Bilirubin, Total 0.2 mg/dL (0.2-1.2); Calc. Creatinine Clearance 0 mL/min (70-130); Calcium 8.5 mg/dL (7.8-10.44); Carbon Dioxide 20 mmol/L (22-29); Chloride 108 mmol/L (98-107); Estimated GFR 134; Globulin 3.4 g/dL (2.4-3.5); Glucose 77 mg/dL (70-105); Lipase 32 U/L (8-78); Potassium 3.9 mmol/L (3.5-5.1); Protein, Total 6.4 g/dL (6.0-8.3); Sodium 137 mmol/L (136-145)
[2023-10-25 16:40] LABS: Bilirubin Neg (Negative); Blood, Urine Negative (Negative); Clarity Clear (Clear); Glucose, Urine (Dipstick) Normal (Negative); Ketone, Urine Negative (Negative); Leukocyte 25 (Negative); Nitrite Negative (Negative); Protein, Urine (Dipstick) Negative (Neg-Trace); Urobilinogen Normal mg/dL (Less than 2)
[2023-10-25 16:54] LABS: Bacteria/HPF 4+ HPF (None Seen); CAUTI Indications for Culture Pelvic or flank pain; Mucous/LPF 1+ LPF (<2+); RBC/HPF None Seen HPF (0-3); WBC/HPF 0-3 HPF (0-3)
[2023-10-25 16:55] LABS: Urine Culture Reflex No No
[2023-10-25 16:56] LABS: #Basophils 0.04 10x3/uL (0.0-0.2); #Eosinphils 0.11 10x3/uL (0.0-0.5); #Monocytes 0.92 10x3/uL (0.0-1.1); #Neutrophils 5.38 10x3/uL (1.5-8.4); %Basophils 0.5 % (0.0-2.0); %Eosinophils 1.3 % (0.0-6.0); %Lymphocytes 26.2 % (18.0-47.0); %Monocytes 10.5 % (0.0-10.0); Hematocrit 26.4 % (34.9-44.5); Mean Corpuscular HGB CONC 30.3 g/dL (32.0-36.0); Mean Corpuscular Hemoglobin 22.8 pg (27.0-33.0); Mean Corpuscular Volume 75.2 fL (81.6-98.3); Mean Platelet Volume 10.2 fL (7.4-10.4); Platelet Count 360 10x3/uL (150-450); RBC Distribution Width 18.1 % (11.5-14.5); Red Blood Cell (RBC) Count 3.51 10x6/uL (3.90-5.03); White Blood Cell (WBC) Count 8.8 10x3/uL (3.5-10.5)
== END 2023-10-25 17:20 | disposition home or self-care (01) ==
LOC: EEVIPCON 15:38 → CSHERS 15:38
DX: O21.9 Vomiting of pregnancy, unspecified (principal); O26.91 Pregnancy related conditions, unspecified, first trimester; R19.7 Diarrhea, unspecified; Z3A.08 8 weeks gestation of pregnancy
CPT/HCPCS: 80053; 81001; 83690; 85025; 96374; J2405

== ENCOUNTER 2023-12-10 21:42 | Inpatient (IN) | payer OTHER ==
[2023-12-10 22:22] VITALS: BMI 27.9
[2023-12-10] MEDS: Lactated Ringer's 1,000 ML IV SCH ×2 (23:03→23:58)
[2023-12-10 23:11] LABS: Bilirubin Neg (Negative); Blood, Urine Negative (Negative); Clarity Clear (Clear); Glucose, Urine (Dipstick) Normal (Negative); Ketone, Urine 150 mg/dL (Negative); Leukocyte Negative (Negative); Nitrite Negative (Negative); Protein, Urine (Dipstick) 15 mg/dl (Neg-Trace); Specific Gravity, Urine 1.015 (1.005-1.030)
[2023-12-10 23:30] LABS: CAUTI Indications for Culture Pregnancy; RBC/HPF 0-3 HPF (0-3)
[2023-12-10 23:34] LABS: Bacteria/HPF 2+ HPF (None Seen); Mucous/LPF 3+ LPF (<2+); Transitional Epithelial 0-3 HPF (None Seen)
[2023-12-10 23:36] LABS: Urine Culture Reflex No No; Urine Culture Reflex Yes Yes
[2023-12-10 23:39] LABS: Fetal Membranes Rupture No Membranes Rupture (No Rupture)
[2023-12-10] MEDS ORDERED: Promethazine HCl 25 MG, Admixture Fee 1 EACH in Sodium Chloride 0.9% 50 ML IVPB PRN (23:44)
[2023-12-10] MEDS: Acetaminophen 500 MG TAB PO SCH (23:57)
[2023-12-10] MEDS: Ondansetron PF 4 MG/2 ML Vial IVP SCH (23:58)
[2023-12-11 02:13] LABS: Influenza A by NAA Not Detected (NotDetected); Influenza B by NAA Not Detected (NotDetected); SARS-CoV-2 NAA Rapid Test Not Detected (NotDetected)
[2023-12-11] MEDS ORDERED: hydrALAZINE 20 MG/ML VIAL SLOW IVP PRN (06:24)
[2023-12-11] MEDS ORDERED: Cetirizine HCl 10 MG TAB PO SCH (08:45)
[2023-12-11] MEDS: Loratadine 10 MG TAB PO SCH (09:40)
[2023-12-11] MEDS: Acetaminophen 325 MG TAB PO PRN (18:12)
[2023-12-11] MEDS: GUAIFENESIN SF SOLN 200 MG/10 ML UDCUP PO PRN (18:13)
[2023-12-13] MEDS ORDERED: hydrOXYzine 25 MG TAB PO PRN (17:08)
[2023-12-13] MEDS: hydrOXYzine 25 MG TAB PO SCH (20:20)
[2023-12-14] MEDS ORDERED: Calcium Carbonate 500 MG ChewTAB PO PRN (03:34)
[2023-12-14] MEDS ORDERED: Bupivacaine/Epinephrine 0.25% 30 ML VIAL ONE (08:00)
[2023-12-16] MEDS: Penicillin G Potassium 5 MILL.UNITS in Sodium Chloride 0.9% 100 ML IVPB SCH (05:17)
[2023-12-16] MEDS ORDERED: Lidocaine 1% (PF) 30 ML VIAL SC PRN (06:50)
[2023-12-16] MEDS ORDERED: Ibuprofen 800 MG TAB PO PRN (06:50)
[2023-12-16] MEDS ORDERED: Promethazine HCl 25 MG/ML VIAL IM PRN (06:52)
[2023-12-16] MEDS ORDERED: Misoprostol 200 MCG TAB PR PRN (06:52)
[2023-12-16] MEDS ORDERED: hydrALAZINE 20 MG/ML VIAL SLOW IVP PRN (06:52)
[2023-12-16] MEDS ORDERED: Carboprost 250 MCG/ML AMP IM PRN (06:52)
[2023-12-16] MEDS ORDERED: Diphenoxylate HCl/Atropine Tablet PO PRN ×2 (06:52)
[2023-12-16] MEDS ORDERED: Tranexamic Acid 1,000 MG/10 ML VIAL IVP PRN (06:52)
[2023-12-16] MEDS ORDERED: Oxytocin 30 units/NS 500 ML 500 ML IV SCH ×2 (07:00)
[2023-12-16 10:04] LABS: HBsAg Index 0.27 S/CO (0-0.99); Hep B Surf Ag Non-Reactive S/CO (NonReactive); Syphilis Antibody Nonreactive (Nonreactive); Syphilis Antibody Index 0.04 S/CO (<1.00 Non-Reactive)
[2023-12-16 10:07] LABS: Hematocrit 28.3 % (34.9-44.5); Hemoglobin 8.5 g/dL (12.0-15.5); Mean Corpuscular Hemoglobin 23.2 pg (27.0-33.0); Mean Corpuscular Volume 77.3 fL (81.6-98.3); Mean Platelet Volume 9.9 fL (7.4-10.4); Platelet Count 369 10x3/uL (150-450); RBC Distribution Width 23.7 % (11.5-14.5); Red Blood Cell (RBC) Count 3.66 10x6/uL (3.90-5.03); White Blood Cell (WBC) Count 9.6 10x3/uL (3.5-10.5)
[2023-12-16] MEDS: fentaNYL/Ropivacaine Epidural 100 ML ONE (10:56)
[2023-12-16] MEDS: Ondansetron PF 4 MG/2 ML Vial IVP PRN (11:49)
[2023-12-16] MEDS: Penicillin G 2.5 MILL.units 2.5 MILL.UNITS in Premix 1 BAG IVPB SCH (11:51)
[2023-12-16] MEDS ORDERED: diphenhydrAMINE 50 MG/ML VIAL IVP PRN (12:22)
[2023-12-16] MEDS ORDERED: ePHEDrine Sulfate 50 MG/10 ML VIAL SLOW IVP PRN (12:22)
[2023-12-16] MEDS ORDERED: Lactated Ringer's 500 ML IV PRN (12:22)
[2023-12-16] MEDS ORDERED: Acetaminophen 325 MG TAB PO PRN (12:22)
[2023-12-16] MEDS ORDERED: Ondansetron PF 4 MG/2 ML Vial IVP PRN (12:22)
[2023-12-16] MEDS ORDERED: Naloxone HCl 0.4 mg/ml Vial IVP PRN ×2 (12:22)
[2023-12-16] MEDS ORDERED: Communication Order-Pharmacy FS SCH (12:30)
[2023-12-16] MEDS: fentaNYL 2 mcg/Ropivacaine 0.2% Epidural 100 ML CADD EPIDURAL SCH (20:47)
[2023-12-16] MEDS: Promethazine HCl 25 MG/ML VIAL IM PRN (21:04)
[2023-12-16] MEDS ORDERED: Boostrix 0.5 ML (Tdap) VIAL (>/=7 yrs of age) IM ONE (22:10)
[2023-12-16] MEDS ORDERED: Milk Of Magnesia 30 ML UDCUP PO PRN (22:10)
[2023-12-16] MEDS ORDERED: Bisacodyl 10 MG SUPP PR PRN (22:10)
[2023-12-16] MEDS: Oxytocin 30 units/NS 500 ML 500 ML IV SCH (23:09)
[2023-12-16] MEDS: Methylergonovine 0.2 MG/ML VIAL IM PRN (23:09)
[2023-12-17] MEDS: fentaNYL/Ropivacaine Epidural 100 ML ONE (00:58)
[2023-12-17] MEDS: Ibuprofen 800 MG TAB PO SCH ×2 (00:59→01:11)
[2023-12-17 04:50] LABS: Hemoglobin 9.6 g/dL (12.0-15.5)
[2023-12-17] MEDS: Docusate 100 MG CAP PO PRN (08:26)
[2023-12-17] MEDS: Moisturizing Cream (Eucerin) 113 GM JAR TOP PRN (17:05)
[2023-12-17] MEDS: Acetaminophen 500 MG TAB PO PRN (18:43)
[2023-12-17] MEDS ORDERED: dilTIAZem ER 60 MG CAP PO SCH (21:00)
[2023-12-18 07:44] VITALS: BP 94/51; TEMP 98.3
[2023-12-18] MEDS: Measles/Mumps/Rubella 10 MCG/0.5 ML VIAL SC ONE (15:11)
== END 2023-12-18 16:30 | DRG 805 ==
LOC: CSHLD/OP 21:42 → CSHANTE 12-11 15:20 → EEVIPCON 12-11 15:20 → OBSVTOIN 12-14 15:58 → CSHLD 12-16 08:21 → CSHPP 12-17 00:40
PROVIDERS: ADMIT Family Medicine; ATTEND Family Medicine
PROC: 10E0XZZ Delivery of Products of Conception, External Approach (ICD-10-PCS; principal; 2023-12-16)
PROC: 30233S1 Transfusion of Nonautologous Globulin into Peripheral Vein, Percutaneous Approach (ICD-10-PCS; 2023-12-17)
DX: O30.043 Twin pregnancy, dichorionic/diamniotic, third trimester (principal); O60.14X0 Preterm labor third trimester with preterm delivery third trimester, not applicable or unspecified; Z37.0 Single live birth; N89.8 Other specified noninflammatory disorders of vagina; O99.824 Streptococcus B carrier state complicating childbirth; Z88.8 Allergy status to other drugs, medicaments and biological substances; Z79.82 Long term (current) use of aspirin; Z79.899 Other long term (current) drug therapy; Z3A.36 36 weeks gestation of pregnancy; O99.344 Other mental disorders complicating childbirth; F41.9 Anxiety disorder, unspecified; F32.A Depression, unspecified; F43.10 Post-traumatic stress disorder, unspecified; O99.02 Anemia complicating childbirth; D64.9 Anemia, unspecified; D56.3 Thalassemia minor
CPT/HCPCS: 36415; 51702; 76810; 81001; 84112; 85014; 85018; 85027; 85461; 86780; 86850; 86870; 86900; 86901; 86922; 87086; 87340; 87480; 87510; 87660; 90384; 90707; 96360; 96365; 96372; 96375; 99284; J2210; J2405; J2540; J2550; J2590

== ENCOUNTER 2024-09-08 11:16 | Emergency (ER) | payer OTHER | END 2024-09-08 12:49 | disposition home or self-care (01) | LOC: CSHERS 11:16 | DX: M79.602 Pain in left arm (principal); Y04.0XXA Assault by unarmed brawl or fight, initial encounter | CPT/HCPCS: 99283 ==

== ENCOUNTER 2024-12-01 11:14 | Emergency (ER) | payer OTHER ==
[2024-12-01 12:30] LABS: #Basophils 0.09 10x3/uL (0.0-0.2); #Eosinophils 0.31 10x3/uL (0.0-0.5); #Monocytes 0.70 10x3/uL (0.0-1.1); #Neutrophils 9.61 10x3/uL (1.5-8.4); %Basophils 0.7 % (0.0-2.0); %Eosinophils 2.5 % (0.0-6.0); %Lymphocytes 15.0 % (18.0-47.0); %Monocytes 5.5 % (0.0-10.0); %Neutrophils 76.1 % (40.0-75.0); Hematocrit 36.1 % (34.9-44.5); Hemoglobin 11.6 g/dL (12.0-15.5); Mean Corpuscular Hemoglobin 26.8 pg (27.0-33.0); Mean Corpuscular Volume 83.4 fL (81.6-98.3); Platelet Count 342 10x3/uL (150-450); Red Blood Cell (RBC) Count 4.33 10x6/uL (3.90-5.03); White Blood Cell (WBC) Count 12.63 10x3/uL (3.5-10.5)
[2024-12-01 12:32] LABS: Pregnancy Test - Urine (BHCG) Negative (Negative); Pregu Control Background? CLEAR/WHITE (CLR/WHITE); Pregu Control Bar Appear? YES (CONTROL BAR)
[2024-12-01 12:33] LABS: Glucose, Urine (Dipstick) Negative (Negative); Leukocyte Large (Negative); Protein, Urine (Dipstick) 100 mg/dL (Neg-Trace); Specific Gravity, Urine 1.020 (1.005-1.030)
[2024-12-01 12:54] LABS: Bacteria/HPF 4+ HPF (None Seen); CAUTI Indications for Culture Pelvic or flank pain; WBC/HPF Greater than 50 HPF (0-3)
[2024-12-01 12:56] LABS: Urine Culture Reflex Yes Yes
[2024-12-01 13:00] LABS: BHCG - Serum Negative (NEGATIVE); Pregs Control Background? CLEAR/WHITE (CLR/WHITE); Pregs Control Bar Appear? YES (CONTROL BAR)
[2024-12-01 13:06] LABS: ALT (SGPT) 12 U/L (Less than 34); AST (SGOT) 29 U/L (11-34); Albumin 4.1 g/dL (3.1-4.5); Alkaline Phosphatase 72 U/L (40-110); Anion Gap 10 mmol/L (10-20); BUN (Urea Nitrogen) 18 mg/dL (7.0-18.7); Bilirubin, Total 0.4 mg/dL (0.3-1.2); Calc. Creatinine Clearance 0 mL/min (70-130); Calcium 9.0 mg/dL (7.8-10.44); Carbon Dioxide 27 mmol/L (22-29); Chloride 106 mmol/L (98-107); Globulin 3.3 g/dL (2.4-3.5); Glucose 90 mg/dL (70-105); Potassium 3.7 mmol/L (3.5-5.1); Sodium 139 mmol/L (136-145)
[2024-12-02 01:20] LABS: Chlam.trachomatis by PCR,Urine Not Detected (NotDetected); GC N.gonorrhoeae PCR,UrineVOID Not Detected (NotDetected)
== END 2024-12-01 13:04 | disposition home or self-care (01) ==
LOC: CSHERS 11:14
DX: N39.0 Urinary tract infection, site not specified (principal); N93.9 Abnormal uterine and vaginal bleeding, unspecified; F17.210 Nicotine dependence, cigarettes, uncomplicated
CPT/HCPCS: 80053; 81001; 81025; 84703; 85025; 87077; 87086; 87186; 87491; 87591; 99284

== ENCOUNTER 2024-12-15 01:16 | Emergency (ER) | payer OTHER ==
[2024-12-15 01:44] LABS: #Basophils 0.07 10x3/uL (0.0-0.2); #Eosinophils Less than 0.03 10x3/uL (0.0-0.5); #Monocytes 1.21 10x3/uL (0.0-1.1); #Neutrophils 12.93 10x3/uL (1.5-8.4); %Basophils 0.4 % (0.0-2.0); %Eosinophils 0.1 % (0.0-6.0); %Lymphocytes 9.2 % (18.0-47.0); %Monocytes 7.7 % (0.0-10.0); %Neutrophils 82.3 % (40.0-75.0); Hematocrit 37.1 % (34.9-44.5); Hemoglobin 11.7 g/dL (12.0-15.5); Mean Corpuscular Hemoglobin 26.4 pg (27.0-33.0); Mean Corpuscular Volume 83.7 fL (81.6-98.3); Platelet Count 269 10x3/uL (150-450); Red Blood Cell (RBC) Count 4.43 10x6/uL (3.90-5.03); White Blood Cell (WBC) Count 15.72 10x3/uL (3.5-10.5)
[2024-12-15] MEDS ORDERED: cefTRIAXone (ROCEPHIN) 1 GM VIAL ONE (01:49)
[2024-12-15] MEDS ORDERED: Acetaminophen 500 MG TAB ONE (01:49)
[2024-12-15 01:56] LABS: Glucose, Urine (Dipstick) Normal (Negative); Leukocyte 500 (Negative); Protein, Urine (Dipstick) 100 mg/dl (Neg-Trace); Specific Gravity, Urine 1.010 (1.005-1.030)
[2024-12-15 01:57] LABS: BHCG - Serum Negative (NEGATIVE); Pregs Control Background? CLEAR/WHITE (CLR/WHITE); Pregs Control Bar Appear? YES (CONTROL BAR)
[2024-12-15 02:00] LABS: ALT (SGPT) 113 U/L (Less than 34); AST (SGOT) 135 U/L (11-34); Albumin 4.0 g/dL (3.1-4.5); Alkaline Phosphatase 95 U/L (40-110); Anion Gap 14 mmol/L (10-20); BUN (Urea Nitrogen) 7 mg/dL (7.0-18.7); Bilirubin, Total 0.6 mg/dL (0.3-1.2); Calc. Creatinine Clearance 0 mL/min (70-130); Calcium 8.7 mg/dL (7.8-10.44); Carbon Dioxide 23 mmol/L (22-29); Chloride 103 mmol/L (98-107); Globulin 3.7 g/dL (2.4-3.5); Glucose 121 mg/dL (70-105); Potassium 3.7 mmol/L (3.5-5.1); Sodium 136 mmol/L (136-145)
[2024-12-15] MEDS ORDERED: Ketorolac Tromethamine 30 MG (1 mL) VIAL ONE (02:03)
[2024-12-15 02:06] LABS: Bacteria/HPF 1+ HPF (None Seen); CAUTI Indications for Culture Pelvic or flank pain; WBC/HPF Greater than 50 HPF (0-3)
[2024-12-15 02:07] LABS: Urine Culture Reflex Yes Yes
[2024-12-15 04:51] LABS: Actual Bicarbonate (HCO3v) 22.1 mEq/L (22-28); Analyzer IN Cardio CS ER; Base Excess -1.4 mEq/L (-2 - +2); Calcium, Ionized (venous) 1.05 mmol/L (1.16-1.32); Chloride (VBG) 103 mmol/L (98-106); Hematocrit-VBG 37 % (36.0-47.0); Hemoglobin (Hb) 12.5 g/dL (11.7-15.5); Potassium (VBG) 3.63 mmol/L (3.70-5.30); Puncture Site Other Site; RapidComm Collect By Lab
== END 2024-12-15 03:02 | disposition home or self-care (01) ==
LOC: CSHERS 01:16
DX: N10 Acute pyelonephritis (principal); F17.210 Nicotine dependence, cigarettes, uncomplicated
CPT/HCPCS: 36415; 80053; 81001; 82805; 83605; 84703; 85025; 87040; 87077; 87086; 87186; 93005; 94760; 96365; 96375; J0696; J1885; J2550

== ENCOUNTER 2025-02-11 13:48 | Emergency (ER) | payer OTHER ==
[2025-02-11 16:37] LABS: Glucose, Urine (Dipstick) Normal (Negative); Leukocyte 100 (Negative); Protein, Urine (Dipstick) 15 mg/dl (Neg-Trace); Specific Gravity, Urine 1.025 (1.005-1.030)
[2025-02-11 17:10] LABS: CAUTI Indications for Culture Pregnancy
[2025-02-11 17:11] LABS: Bacteria/HPF 2+ HPF (None Seen); Mucous/LPF 3+ LPF (<2+)
[2025-02-11 17:14] LABS: Urine Culture Reflex Yes Yes
[2025-02-11 17:33] LABS: #Basophils 0.06 10x3/uL (0.0-0.2); #Eosinophils 0.12 10x3/uL (0.0-0.5); #Monocytes 0.65 10x3/uL (0.0-1.1); #Neutrophils 6.49 10x3/uL (1.5-8.4); %Basophils 0.6 % (0.0-2.0); %Eosinophils 1.2 % (0.0-6.0); %Lymphocytes 25.1 % (18.0-47.0); %Monocytes 6.6 % (0.0-10.0); %Neutrophils 66.3 % (40.0-75.0); Hematocrit 32.3 % (34.9-44.5); Hemoglobin 10.3 g/dL (12.0-15.5); Mean Corpuscular Hemoglobin 26.5 pg (27.0-33.0); Mean Corpuscular Volume 83.0 fL (81.6-98.3); Platelet Count 308 10x3/uL (150-450); Red Blood Cell (RBC) Count 3.89 10x6/uL (3.90-5.03); White Blood Cell (WBC) Count 9.80 10x3/uL (3.5-10.5)
[2025-02-11 17:48] LABS: ALT (SGPT) 25 U/L (Less than 34); AST (SGOT) 30 U/L (11-34); Albumin 3.8 g/dL (3.1-4.5); Alkaline Phosphatase 63 U/L (40-110); Anion Gap 12 mmol/L (10-20); BUN (Urea Nitrogen) 12 mg/dL (7.0-18.7); Bilirubin, Total 0.3 mg/dL (0.3-1.2); Calc. Creatinine Clearance 0 mL/min (70-130); Calcium 8.4 mg/dL (7.8-10.44); Carbon Dioxide 22 mmol/L (22-29); Chloride 109 mmol/L (98-107); Globulin 2.9 g/dL (2.4-3.5); Glucose 113 mg/dL (70-105); Potassium 3.5 mmol/L (3.5-5.1); Sodium 139 mmol/L (136-145)
== END 2025-02-11 19:00 | disposition home or self-care (01) ==
LOC: CSHERS 13:48
DX: O20.9 Hemorrhage in early pregnancy, unspecified (principal); O23.41 Unspecified infection of urinary tract in pregnancy, first trimester; N39.0 Urinary tract infection, site not specified; O99.331 Smoking (tobacco) complicating pregnancy, first trimester; F17.210 Nicotine dependence, cigarettes, uncomplicated; Z3A.01 Less than 8 weeks gestation of pregnancy
CPT/HCPCS: 36415; 76856; 80053; 81001; 84702; 85025; 87086

== ENCOUNTER 2025-02-14 15:31 | Emergency (ER) | payer OTHER | END 2025-02-14 18:55 | LOC: CSHERS 15:31 | DX: O20.9 Hemorrhage in early pregnancy, unspecified (principal); O99.331 Smoking (tobacco) complicating pregnancy, first trimester; F17.210 Nicotine dependence, cigarettes, uncomplicated; Z3A.01 Less than 8 weeks gestation of pregnancy | CPT/HCPCS: 36415; 76856; 84702 ==

== ENCOUNTER 2025-02-25 00:36 | Emergency (ER) | payer OTHER ==
[2025-02-25 01:00] LABS: #Basophils 0.09 10x3/uL (0.0-0.2); #Eosinophils 0.06 10x3/uL (0.0-0.5); #Monocytes 0.82 10x3/uL (0.0-1.1); #Neutrophils 6.76 10x3/uL (1.5-8.4); %Basophils 0.8 % (0.0-2.0); %Eosinophils 0.5 % (0.0-6.0); %Lymphocytes 29.3 % (18.0-47.0); %Monocytes 7.5 % (0.0-10.0); %Neutrophils 61.5 % (40.0-75.0); Hematocrit 36.7 % (34.9-44.5); Hemoglobin 11.9 g/dL (12.0-15.5); Mean Corpuscular Hemoglobin 26.9 pg (27.0-33.0); Mean Corpuscular Volume 83.0 fL (81.6-98.3); Platelet Count 323 10x3/uL (150-450); Red Blood Cell (RBC) Count 4.42 10x6/uL (3.90-5.03); White Blood Cell (WBC) Count 10.99 10x3/uL (3.5-10.5)
[2025-02-25 01:12] LABS: ALT (SGPT) 13 U/L (Less than 34); AST (SGOT) 23 U/L (11-34); Albumin 4.2 g/dL (3.1-4.5); Alkaline Phosphatase 70 U/L (40-110); Anion Gap 18 mmol/L (10-20); BUN (Urea Nitrogen) 8 mg/dL (7.0-18.7); Bilirubin, Total 0.1 mg/dL (0.3-1.2); Calc. Creatinine Clearance 0 mL/min (70-130); Calcium 8.7 mg/dL (7.8-10.44); Carbon Dioxide 15 mmol/L (22-29); Chloride 110 mmol/L (98-107); Globulin 3.4 g/dL (2.4-3.5); Glucose 104 mg/dL (70-105); INR-International Normal Ratio 0.9; PTT 23.9 sec (22.0-33.0); Potassium 3.3 mmol/L (3.5-5.1); Prothrombin Time 10.3 sec (9.5-12.1); Sodium 140 mmol/L (136-145)
[2025-02-25 01:17] LABS: Acetaminophen Less than 10 mcg/mL (Less than 10); Salicylate Less than 8.0 mg/dL (Less than 8.0)
== END 2025-02-25 02:26 | disposition home or self-care (01) ==
LOC: CSHERS 00:36
DX: O99.891 Other specified diseases and conditions complicating pregnancy (principal); R10.9 Unspecified abdominal pain; F10.129 Alcohol abuse with intoxication, unspecified; F17.210 Nicotine dependence, cigarettes, uncomplicated; Z3A.01 Less than 8 weeks gestation of pregnancy
CPT/HCPCS: 76801; 80053; 80307; 84702; 85025; 85610; 85730

== ENCOUNTER 2025-03-08 13:05 | Emergency (ER) | payer OTHER ==
[2025-03-08 13:54] LABS: #Basophils 0.05 10x3/uL (0.0-0.2); #Eosinophils 0.06 10x3/uL (0.0-0.5); #Monocytes 0.57 10x3/uL (0.0-1.1); #Neutrophils 5.30 10x3/uL (1.5-8.4); %Basophils 0.6 % (0.0-2.0); %Eosinophils 0.8 % (0.0-6.0); %Lymphocytes 22.9 % (18.0-47.0); %Monocytes 7.2 % (0.0-10.0); %Neutrophils 67.1 % (40.0-75.0); Hematocrit 34.2 % (34.9-44.5); Hemoglobin 11.1 g/dL (12.0-15.5); Mean Corpuscular Hemoglobin 27.3 pg (27.0-33.0); Mean Corpuscular Volume 84.2 fL (81.6-98.3); Platelet Count 284 10x3/uL (150-450); Red Blood Cell (RBC) Count 4.06 10x6/uL (3.90-5.03); White Blood Cell (WBC) Count 7.90 10x3/uL (3.5-10.5)
[2025-03-08 14:15] LABS: Glucose, Urine (Dipstick) Normal (Negative); Leukocyte Negative (Negative); Protein, Urine (Dipstick) Negative (Neg-Trace); Specific Gravity, Urine 1.010 (1.005-1.030)
[2025-03-08 14:38] LABS: Bacteria/HPF None Seen HPF (None Seen); CAUTI Indications for Culture Dysuria,urgency,freq; RBC/HPF 0-3 HPF (0-3); Urine Culture Reflex No No; WBC/HPF None Seen HPF (0-3)
== END 2025-03-08 15:45 | disposition home or self-care (01) ==
LOC: CSHERS 13:05
DX: O20.0 Threatened abortion (principal); O99.331 Smoking (tobacco) complicating pregnancy, first trimester; Z3A.01 Less than 8 weeks gestation of pregnancy
CPT/HCPCS: 36415; 76801; 81001; 84702; 85025; 86900; 86901